=== PATIENT | male | born 1980 | race African-American/Black ===

== ENCOUNTER 2021-11-14 00:33 | Emergency (ER) | payer OTHER ==
[~2021-11-14] VITALS: Ht 188 cm; Wt 84.0 kg
[2021-11-14] MEDS ORDERED: KETOROLAC 15MG/ML VIAL IM ONE (01:30)
[2021-11-14 01:45] LABS: CLARITY URINE CLEAR (CLEAR); COLOR URINE YELLOW (YELLOW); KETONES URINE TRACE (NEGATIVE); LEUKOCYTE ESTERASE URINE NEGATIVE (NEGATIVE); NITRITE URINE NEGATIVE (NEGATIVE); OCCULT BLOOD URINE NEGATIVE (NEGATIVE); PH URINE 6.5 (4.5-8.0); PROTEIN URINE 2+ (NEGATIVE); SPECIFIC GRAVITY URINE 1.026 (1.005-1.030)
[2021-11-14] MEDS ORDERED: IBUPROFEN 600MG TABLET PO ONE (01:45)
[2021-11-14 02:06] LABS: BASOPHILS % 0.9 % (0.0-2.0); EOSINOPHILS % 10.1 % (0.0-5.0); HEMOGLOBIN. 14.6 g/dL (14.0-18.0); LYMPHOCYTES % 38.7 % (20.0-50.0); MEAN CORPUSCULAR HEMOGLOBIN 32.7 pg (28.0-32.0); MEAN CORPUSCULAR VOLUME 93.9 fL (80.0-94.0); MEAN PLATELET VOLUME 8.7 fl (7.4-10.4); NEUTROPHILS % 43.3 % (40.0-76.0); PLATELET 253 x1000/uL (130-400); RED BLOOD CELL COUNT 4.47 mill/uL (4.7-6.1); RED CELL DISTRIBUTION WIDTH 13.9 % (11.6-14.6)
[2021-11-14 02:23] LABS: CHLORIDE 107 mEq/L (98-107)
[2021-11-14] MEDS ORDERED: MORPHINE SULFATE 4 MG/ML CPJ (NOT FOR IM USE) IV ONE (05:00)
[2021-11-14] MEDS ORDERED: PIPERACILLIN/TAZOBACTAM 3.375GM/50ML PREMIX IV SCH (05:00)
[2021-11-14] MEDS ORDERED: SODIUM CHLORIDE 0.9% 1,000 ML IV ONE (05:45)
[2021-11-14 05:51] VITALS: BP 160/101
== END 2021-11-14 09:25 | disposition short-term general hospital (02) ==
LOC: ER 00:33
DX: K37 Unspecified appendicitis (principal); I10 Essential (primary) hypertension
CPT/HCPCS: 36415; 74176; 80053; 81003; 83690; 85025; 85651; 96361; 96365; 96375; 99285; J1885; J2270; J2543; J7030; 96374